=== PATIENT | female | born 1995 | race Caucasian/White ===

== ENCOUNTER 2017-04-08 21:58 | Emergency (ER) | payer OTHER ==
[2017-04-08 22:06] VITALS: RESP 18
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
--- NOTE | 2017-04-09 00:06 | XR ---
EXAM: XR Thoracic Spine, 3 Views CLINICAL HISTORY: Reason: Pain TECHNIQUE: Frontal, lateral and swimmer's views of the thoracic spine. COMPARISON: No relevant prior studies available. FINDINGS: Vertebrae: Unremarkable. No acute fracture. Normal alignment. Disc spaces: No acute findings. No significant narrowing. Soft tissues: Unremarkable. IMPRESSION: Normal thoracic spine x-rays.
--- NOTE | 2017-04-09 00:22 | CT ---
EXAM: CT Head Without Intravenous Contrast CLINICAL HISTORY: Reason: Pain TECHNIQUE: Axial computed tomography images of the head/brain without intravenous contrast. CTDI is 60.30 mGy and DLP is 1090.40 mGy-cm. This CT exam was performed using one or more of the following dose reduction techniques: automated exposure control, adjustment of the mA and/or kV according to patient size, and/or use of iterative reconstruction technique. COMPARISON: No relevant prior studies available. FINDINGS: Brain: Unremarkable. No hemorrhage. No significant white matter disease. No edema. Ventricles: Unremarkable. No ventriculomegaly. Bones/joints: Unremarkable. No acute fracture. Soft tissues: Unremarkable. Sinuses: Unremarkable as visualized. No acute sinusitis. Mastoid air cells: Unremarkable as visualized. No mastoid effusion. IMPRESSION: Normal head/brain CT.
[2017-04-09 00:55] VITALS: BP 146/73; PULSE 92; TEMP 97.7
== END 2017-04-09 00:55 | disposition home or self-care (01) ==
LOC: EC 21:58
DX: S00.03XA Contusion of scalp, initial encounter (principal); S20.409A Unspecified superficial injuries of unspecified back wall of thorax, initial encounter; V48.5XXA Car driver injured in noncollision transport accident in traffic accident, initial encounter; Y92.410 Unspecified street and highway as the place of occurrence of the external cause
CPT/HCPCS: 70450; 72072; 99284